=== PATIENT | male | born 1985 | race Hispanic/Latino ===

== ENCOUNTER 2016-11-05 02:01 | Emergency (ER) | payer BC, MEDICAID ==
[2016-11-05 02:20] VITALS: BP 128/74; PULSE 74; RESP 16; TEMP 98; O2SAT 98
--- NOTE | 2016-11-05 02:44 | C.PDOC ---
History Of Present Illness 31 y/o male c/o sore throat and dysphagia x 2 days. right side more than left. pt sts he recently had uri symptoms. no fever or chills. pt able to swallow water, no drooling. no analgesics taken. Time Seen by Provider: 11/05/16 02:11 Chief Complaint (Nursing): ENT Problem History Per: Patient History/Exam Limitations: no limitations Onset/Duration Of Symptoms: Days (2) Location Of Pain: Throat Sick Contacts (Context): Family Member(s) Associated Symptoms: Sore Throat. denies: Fever, Chills, Cough, Neck Pain Ear Symptoms: Bilateral: None Past Medical History Reviewed: Historical Data, Nursing Documentation, Vital Signs Vital Signs: Last Vital Signs Temp 98 F 11/05/16 02:16 Pulse 74 11/05/16 02:16 Resp 16 11/05/16 02:16 BP 128/74 11/05/16 02:16 Pulse Ox 98 11/05/16 02:47 - Medical History PMH: No Chronic Diseases Surgical History: No Surg Hx Family History: States: Unknown Family Hx - Social History Hx Tobacco Use: No Hx Alcohol Use: No Hx Substance Use: Yes Review Of Systems Constitutional: Negative for: Fever, Chills ENT: Positive for: Throat Pain. Negative for: Ear Pain, Nose Pain, Nose Congestion, Throat Swelling Cardiovascular: Negative for: Chest Pain Respiratory: Negative for: Shortness of Breath Gastrointestinal: Negative for: Vomiting, Abdominal Pain Physical Exam - Physical Exam Appears: Non-toxic, No Acute Distress Skin: Normal Color, Warm, Dry Head: Atraumatic, Normacephalic Eye(s): bilateral: Normal Inspection, PERRL Nose: Normal, No Discharge Oral Mucosa: Moist Tongue: Normal Appearing Lips: Normal Appearing Teeth: Normal Dentition Gingiva: Normal Appearing Throat: Other (mild erythema, no tonsillar enlargement, no exudate, uvula midline) Neck: Normal ROM Lymphatic: Adenopathy (right tender submandibular adenopathy) Cardiovascular: Rhythm Regular, No Murmur Respiratory: Normal Breath Sounds, No Rales, No Rhonchi, No Stridor, No Wheezing Gastrointestinal/Abdominal: Bowel Sounds, Soft, No Tenderness ED Course And Treatment O2 Sat by Pulse Oximetry: 98 Medical Decision Making Medical Decision Making: sore throat- will r/o strep, tx for pain 355 am pt feeling better. strep neg. will dc with ibuprofen and pmd f/u Disposition Counseled Patient/Family Regarding: Diagnosis, Need For Followup - Disposition Disposition: HOME/ ROUTINE Disposition Time: 03:56 Condition: IMPROVED Additional Instructions: Gargle with warm salty water or listerine 3-4 times a day. Ibuprofen 600 mg ( with food) by mouth every 6 hours for pain if needed. - Clinical Impression Clinical Impression: Acute pharyngitis
== END 2016-11-05 04:10 | disposition home or self-care (01) ==
LOC: C.ER 02:01
DX: J02.9 Acute pharyngitis, unspecified (principal)